=== PATIENT | female | born 1995 | race Caucasian/White ===

== ENCOUNTER → 2017-06-05 21:23 | Observation (INO) ==
[2017-06-05 14:50] LABS: Bilirubin,Urine Negative (Negative); Blood,Urine Negative (Negative); Clarity,Urine Cloudy (Clear); Color,Urine Dark Yellow (Yellow); Glucose,Urine (UA) Normal (Normal); Ketones,Urine Negative (Negative); Leukocyte Esterase,Urine Moderate (Negative); Nitrite,Urine Positive (Negative); Protein,Urine 30 mg/dL (Neg-Trace); Specific Gravity,Urine > 1.030 (1.010-1.025); Urobilinogen,Urine Normal (Normal)
[2017-06-05 14:52] LABS: Bacteria,Urine Moderate per hpf (None-Few); Hyaline Casts,Urine None Seen per lpf (None-Few); Squamous Epithelial Cell,Urine Many per lpf (None-Few); WBC,Urine TNTC per hpf (0-3)
[2017-06-05 14:56] LABS: Amphetamine Screen,Urine Negative ng/mL (Cutoff=1000); Barbiturate Screen,Urine Negative ng/mL (Cutoff=200); Benzodiazepines Screen,Urine Negative ng/mL (Cutoff=200); Cannabinoid Screen,Urine Negative ng/mL (Cutoff = 50); Cocaine Screen,Urine Negative ng/mL (Cutoff= 300); Opiate Screen,Urine Negative ng/mL (Cutoff=300); Phencyclidine Screen,Urine Negative ng/mL (Cutoff=25)
[2017-06-05 15:41] LABS: Basophils % 0.2 %; Eosinophils % 0.5 %; Hematocrit 30.8 % (35.3-44.9); Hemoglobin 9.6 g/dL (11.5-15.4); Immature Granulocytes % 0.4 % (0-4); Lymphocytes # 1.2 K/mcL (0.6-4.6); Lymphocytes % 14.6 %; Mean Corpuscular HGB Conc 31.2 g/dL (31.6-35.5); Mean Corpuscular Volume 83.5 fL (83.0-100.0); Mean Platelet Volume 10.2 fL (9.4-12.4); Monocytes # 0.5 K/mcL (0.0-1.3); Monocytes % 5.9 %; Neutrophils # 6.6 K/mcL (1.6-8.9); Platelet Count 239 K/mcL (140-400); Red Blood Count 3.69 M/mcL (3.82-4.97); Red Cell Distribution Width 14.6 % (11.5-14.5); Segmented Neutrophils % 78.4 %
--- NOTE | 2017-06-05 19:52 | Discharge Summary ---
Date of Encounter: 06/05/17 Time of Encounter: 19:56 - Discharge Diagnosis (1) UTI (urinary tract infection) in in third trimester Priority: Primary Status: Acute Comments: at 28 4/7 weeks gestation presents with right flank pain. WBC 8.5 UA: Cloudy, positive nitrites, moderat leuk esterase, microscopic WBC TNTC, moderate bacteria. Retroperitoneal US: [id number]-[id number] right-sided hydronephrosis, similar to prior exam on 02/26/2017. No calculi visualized. 2. Both ureteral jets are visualized within the bladder, suggestive of lack of high-grade obstruction. Plan: -1Gm IV Rocephin -PO Keflex 500mg BID x 7 days -[place] Q6h x3 days PRN severe pain (2) Right flank pain Priority: Primary Status: Acute (3) 28 weeks gestation of Priority: Primary Status: Chronic - Discharge Medications Prescriptions: cephALEXin [Keflex] 500 mg PO BID #14 capsule HYDROcodone/Acet 5/325 mg [[place] 5-325 mg] 1 tab PO Q6H PRN #12 tab PRN Reason: Severe Pain Home Medications: Ferrous Sulfate 06/05/17 [History] HYDROcodone/Acet 5/325 mg [[place] 5-325 mg] 1 tab PO Q6H PRN #12 tab 06/05/17 [Rx ] Formula Tablet 06/05/17 [History] cephALEXin [Keflex] 500 mg PO BID #14 capsule 06/05/17 [Rx] Allergies/Adverse Reactions: 3 Allergy/AdvReac Type Severity Reaction Status Date / Time No Known Allergies Allergy Verified 04/24/15 07:24 Data Procedures and tests throughout hospitalization: Laboratory Tests 06/05/17 06/05/17 06/05/17 14:35 14:35 15:17 WBC 8.5 RBC 3.69 L Hgb 9.6 L Hct 30.8 L MCV 83.5 MCH 26.0 L MCHC 31.2 L RDW 14.6 H Plt Count 239 MPV 10.2 Immature Gran % 0.4 Seg Neutrophils % 78.4 Lymphocytes % 14.6 Monocytes % 5.9 Eosinophils % 0.5 Basophils % 0.2 Neutrophils # 6.6 Lymphocytes # 1.2 Monocytes # 0.5 Eosinophils # 0.0 Basophils # 0.0 Urine Color Dark Yellow Urine Clarity Cloudy A Urine pH 6.0 Ur Specific [place] > 1.030 H Urine Protein 30 H Urine Glucose (UA) Normal Urine Ketones Negative Urine Blood Negative Urine Nitrite Positive A Urine Bilirubin Negative Urine Urobilinogen Normal Ur Leukocyte Esterase Moderate H Urine Microscopic RBC 5-15 H Urine Microscopic WBC TNTC H Ur Squamous Epith Cells Many H Urine Bacteria Moderate H Hyaline Casts None Seen Ur Culture Indicated? YES A Urine Opiates Screen Negative Ur Barbiturates Screen Negative Ur Phencyclidine Scrn Negative Ur Amphetamines Screen Negative U Benzodiazepines Scrn Negative Urine Cocaine Screen Negative U Marijuana (THC) Screen Negative Labs on day of discharge: Labs from last 24 hours 06/05/17 06/05/17 06/05/17 15:17 14:35 14:35 WBC 8.5 RBC 3.69 L Hgb 9.6 L Hct 30.8 L MCV 83.5 MCH 26.0 L MCHC 31.2 L RDW 14.6 H Plt Count 239 MPV 10.2 Immature Gran % 0.4 Seg Neutrophils % 78.4 Lymphocytes % 14.6 Monocytes % 5.9 Eosinophils % 0.5 Basophils % 0.2 Neutrophils # 6.6 Lymphocytes # 1.2 Monocytes # 0.5 Eosinophils # 0.0 Basophils # 0.0 Urine Color Dark Yellow Urine Clarity Cloudy A Urine pH 6.0 Ur Specific [place] > 1.030 H Urine Protein 30 H Urine Glucose (UA) Normal Urine Ketones Negative Urine Blood Negative Urine Nitrite Positive A Urine Bilirubin Negative Urine Urobilinogen Normal Ur Leukocyte Esterase Moderate H Urine Microscopic RBC 5-15 H Urine Microscopic WBC TNTC H Ur Squamous Epith Cells Many H Urine Bacteria Moderate H Hyaline Casts None Seen Ur Culture Indicated? YES A Urine Opiates Screen Negative Ur Barbiturates Screen Negative Ur Phencyclidine Scrn Negative Ur Amphetamines Screen Negative U Benzodiazepines Scrn Negative Urine Cocaine Screen Negative U Marijuana (THC) Screen Negative - Impressions ITS Impressions Retroperitoneum Ultrasound 06/05/17 14:27 IMPRESSION: 1. Uhmw-ke-[id number] right-sided hydronephrosis, similar to prior exam on 02/26/2017. No calculi visualized. 2. Both ureteral jets are visualized within the bladder, suggestive of lack of high-grade obstruction. 3. Tiny gallbladder polyps incidentally noted. No further follow-up is recommended. D/ / 06/05/2017 19:20:52 Devon Bourgeois MD / david Interpreting Provider: Devon Bourgeois MD - Imaging and Cardiology US - abdomen Status: image reviewed by me Additional comments: Date of admission: 06/05/17 13:24 Discharging clinician: Nadia Watkins Anticipated date of discharge: 06/05/17 - Patient Status Disposition: Home, Self-Care Condition: Good Functional capacity at discharge: independent ambulation Overall status at discharge: patient is progressing back to baseline - Discharge Instructions - Diet and Activity Activity: increase activity as tolerated Diet: advance to your usual diet 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 [id number]-[id number] right-sided hydronephrosis, similar to prior exam on 02/26/2017. No calculi visualized. 2. Both ureteral jets are visualized within the bladder, suggestive of lack of high-grade obstruction. 3. Tiny gallbladder polyps incidentally noted. No further follow-up is recommended. D/ / 06/05/2017 19:20:52 Devon Bourgeois MD / david Interpreting Provider: Devon Bourgeois MD Hospital course: at 28 4/7 weeks gestation presents with right flank pain. She states she noticed some dysuria and cloudy urine around wednesday last week. On tuesday she noticed right flank pain that is aching with intermittent sharp, stabbing pain that radiates to her groin and vagina. She denies f/c, cp, sob, RASHID, dizziness, n /v. She has a history of kidney stones requiring lithotripsy. She states she had a kidney stone around 12 weeks during this and they could not find the stone and just treated her pain. WBC 8.5; UA: Cloudy, positive nitrites , moderat leuk esterase, microscopic WBC TNTC, moderate bacteria. Retroperitoneal US: Onlf-wz-icbddtwl right-sided hydronephrosis, similar to prior exam on 02/26/2017. No calculi visualized. 2. Both ureteral jets are visualized within the bladder, suggestive of lack of high-grade obstruction. No evidence of kidney stone, uretal obstruction or pyeloephritis. Patient afebrile , VSS. Will treat UTI with 1Gm IV Rocephin now and discharge the patient with PO Keflex 500mg BID x 7 days. Patient discharged with [place] Q6h x3 days PRN for severe pain. Time Attestation: Total time spent providing and/or coordinating discharge services: Time Spent: Less than 30 minutes Exam - Constitutional General appearance IM: cooperative, mild distress, A&O X 3, pleasant, answers questions appropriately - Respiratory Respiratory exam: Present: CTAB. Absent: rales, respiratory distress, rhonchi, stridor, wheezes - Cardiovascular Cardiovascular exam IM: Present: RRR, +S1, +S2. Absent: diastolic murmur, systolic murmur - GI/Abdominal GI/Abdominal exam IM: normal bowel sounds, soft - Rectal Rectal exam: deferred Additional comments: CVA tenderness on the right - Uterine Tone: Firm Uterus Position: 3 Fingers Above Umbilicus - Extremities Exam Extremities exam IM: Present: normal capillary refill, normal inspection, pedal edema, radial pulses palpable and symmetrical. Absent: calf tenderness, tenderness - Neurological Exam Neurological exam: alert, oriented X3, no focal deficits, strengths equal and symetr throughout - VTE Reasons for not Prescribing Prophylaxis: Treatment not Indicated - Low risk for VTE - Attending Attestation I examined this patient and my medical decision-making was reviewed with the Resident Physician. I agree with the documented findings, disposition and treatment plan as described except to the extent set forth below.
[~2017-06-05 21:23] MED LIST: *HR* HYDROcodone/Acet 5/325 mg TABLET PO ONE; *HR* Morphine 2 MG/ML SYRINGE IVP PRN
== END | disposition home or self-care (01) ==
LOC: 1NENULAB
PROVIDERS: ADMIT Obstetrics & Gynecology; ATTEND Obstetrics & Gynecology

== ENCOUNTER → 2017-07-05 16:54 | Observation (INO) ==
[2017-07-05 15:56] LABS: Basophils % 0.2 %; Eosinophils # 0.1 K/mcL (0.0-0.6); Eosinophils % 0.5 %; Hematocrit 32.3 % (35.3-44.9); Hemoglobin 10.3 g/dL (11.5-15.4); Immature Granulocytes % 0.4 % (0-4); Lymphocytes # 1.5 K/mcL (0.6-4.6); Lymphocytes % 14.9 %; Mean Corpuscular HGB Conc 31.9 g/dL (31.6-35.5); Mean Corpuscular Hemoglobin 26.1 pg (28.0-33.3); Mean Platelet Volume 9.9 fL (9.4-12.4); Monocytes # 0.6 K/mcL (0.0-1.3); Monocytes % 5.3 %; Neutrophils # 8.1 K/mcL (1.6-8.9); Platelet Count 259 K/mcL (140-400); Red Blood Count 3.94 M/mcL (3.82-4.97); Red Cell Distribution Width 14.8 % (11.5-14.5); Segmented Neutrophils % 78.7 %
[2017-07-05 15:57] LABS: Bilirubin,Urine Negative (Negative); Blood,Urine Negative (Negative); Clarity,Urine Cloudy (Clear); Color,Urine Yellow (Yellow); Glucose,Urine (UA) Normal (Normal); Ketones,Urine Negative (Negative); Leukocyte Esterase,Urine Negative (Negative); Nitrite,Urine Negative (Negative); Protein,Urine Negative (Neg-Trace); Urobilinogen,Urine Normal (Normal)
[2017-07-05 15:59] LABS: Bacteria,Urine Moderate per hpf (None-Few); Hyaline Casts,Urine None Seen per lpf (None-Few); Squamous Epithelial Cell,Urine Many per lpf (None-Few)
[2017-07-05 16:09] LABS: Alanine Aminotransferase 7 Units/L (0-55); Aspartate Amino Transferase 8 Units/L (5-34); BUN/Creatinine Ratio 10 (6-26); Blood Urea Nitrogen 6 mg/dL (7-20); Lactate Dehydrogenase 150 Units/L (159-327); Uric Acid 4.1 mg/dL (2.6-6.0); eGFR For African Americans > 60 (> 60); eGFR For Non-African Americans > 60 (> 60)
[2017-07-05 16:13] LABS: Amphetamine Screen,Urine Negative ng/mL (Cutoff=1000); Barbiturate Screen,Urine Negative ng/mL (Cutoff=200); Benzodiazepines Screen,Urine Negative ng/mL (Cutoff=200); Cannabinoid Screen,Urine Negative ng/mL (Cutoff = 50); Cocaine Screen,Urine Negative ng/mL (Cutoff= 300); Opiate Screen,Urine Negative ng/mL (Cutoff=300); Phencyclidine Screen,Urine Negative ng/mL (Cutoff=25)
--- NOTE | 2017-07-05 18:04 | OB/GYN Progress Note ---
Date of Encounter: 07/05/17 Time of Encounter: 16:47 - Assessment and Plan (1) 32 weeks gestation of Status: Acute PIH labs normal Serial blood pressures normal Urine contaminated NST - reactive Discharge home with PIH and labor precautions Follow up in office as scheduled for routine care and as needed. Subjective - Subjective Principal diagnosis: Headache Interval history: Ms Sandoval presented to labor and delivery triage at 32 weeks and 6 days with c/o headache, nausea, and dizziness. She states she is concerned she may have PIH again as she had it with her last and had to have her baby 10 days early. She states positive movement. She denies swelling, cramping, contractions, vaginal bleeding/discharge, epigastric pain, and visual disturbances. Antepartum ROS: new complaints, movement normal, no contractions Objective - Vital Signs Vital Signs: Intake and Output 07/05/17 07/05/17 07/05/17 07:59 15:59 23:59 Other: Weight 125.4 kg Patient Weight 07/05/17 23:59 Weight 125.4 kg - Exam FHR: auscultation normal, category 1 - Labs Labs: Abnormal lab results Hgb 10.3 g/dL (11.5-15.4) L 07/05/17 15:46 Hct 32.3 % (35.3-44.9) L 07/05/17 15:46 MCV 82.0 fL (83.0-100.0) L 07/05/17 15:46 MCH 26.1 pg (28.0-33.3) L 07/05/17 15:46 RDW 14.8 % (11.5-14.5) H 07/05/17 15:46 BUN 6 mg/dL (7-20) L 07/05/17 15:46 Lactate Dehydrogenase 150 Units/L (159-327) L 07/05/17 15:46 Urine Clarity Cloudy (Clear) A 07/05/17 15:35 Urine Microscopic WBC 5-15 per hpf (0-3) H 07/05/17 15:35 Ur Squamous Epith Cells Many per lpf (None-Few) H 07/05/17 15:35 Urine Bacteria Moderate per hpf (None-Few) H 07/05/17 15:35
== END | disposition home or self-care (01) ==
LOC: 1NENULAB
PROVIDERS: ADMIT Obstetrics & Gynecology; ATTEND Obstetrics & Gynecology

== ENCOUNTER → 2017-08-01 09:05 | Observation (INO) ==
[2017-07-31 18:38] LABS: Bilirubin,Urine Negative (Negative); Blood,Urine Small (Negative); Clarity,Urine Turbid (Clear); Color,Urine Dark Yellow (Yellow); Glucose,Urine (UA) Normal (Normal); Ketones,Urine Negative (Negative); Leukocyte Esterase,Urine Negative (Negative); Nitrite,Urine Negative (Negative); Protein,Urine 100 mg/dL (Neg-Trace); Specific Gravity,Urine > 1.030 (1.010-1.025); Urobilinogen,Urine Normal (Normal)
[2017-07-31 18:45] LABS: Bacteria,Urine Many per hpf (None-Few); Squamous Epithelial Cell,Urine Many per lpf (None-Few); WBC,Urine TNTC per hpf (0-3)
[2017-07-31 19:09] LABS: Calcium Oxalate Crystals,Urine Present
[2017-07-31 19:10] LABS: Yeast,Urine Few per hpf (None Seen)
[2017-07-31 19:12] LABS: Hyaline Casts,Urine None Seen per lpf (None-Few)
[2017-07-31 19:35] LABS: Basophils % 0.2 %; Eosinophils # 0.1 K/mcL (0.0-0.6); Eosinophils % 0.4 %; Hematocrit 32.8 % (35.3-44.9); Hemoglobin 10.4 g/dL (11.5-15.4); Immature Granulocytes % 0.5 % (0-4); Lymphocytes # 1.8 K/mcL (0.6-4.6); Lymphocytes % 13.6 %; Mean Corpuscular HGB Conc 31.7 g/dL (31.6-35.5); Mean Corpuscular Hemoglobin 25.7 pg (28.0-33.3); Mean Platelet Volume 10.7 fL (9.4-12.4); Monocytes # 0.6 K/mcL (0.0-1.3); Monocytes % 4.2 %; Neutrophils # 10.7 K/mcL (1.6-8.9); Platelet Count 248 K/mcL (140-400); Red Blood Count 4.05 M/mcL (3.82-4.97); Red Cell Distribution Width 15.2 % (11.5-14.5); Segmented Neutrophils % 81.1 %
[2017-07-31 19:49] LABS: Alanine Aminotransferase 10 Units/L (0-55); Aspartate Amino Transferase 12 Units/L (5-34); BUN/Creatinine Ratio 14 (6-26); Blood Urea Nitrogen 9 mg/dL (7-20); Lactate Dehydrogenase 200 Units/L (159-327); Uric Acid 3.9 mg/dL (2.6-6.0); eGFR For African Americans > 60 (> 60); eGFR For Non-African Americans > 60 (> 60)
--- NOTE | 2017-07-31 20:20 | OB/GYN History & Physical ---
Date of Encounter: 07/31/17 Time of Encounter: 20:15 Assessment and Plan (1) 36 weeks gestation of Current visit: Yes Status: Chronic (2) induced hypertension Current visit: Yes Status: Acute Labs pending. IV labatolol ordered. Explained to patient we will control her blood pressure and await her labs. Monitor for labor and FHT's. She states with her first she was controlled with IV medication, but not PO medication at home and that was what lead to her delivery. She progressed to complete, but she was unable to push the baby out. Qualifiers: Trimester: third trimester Qualified Code(s): O13.3 - Gestational [ -induced] hypertension without significant proteinuria, third trimester (3) Previous section Current visit: Yes Status: Chronic Patient plans to have a repeat with tubal ligation. History of Present Illness Chief complaint: decreased movement and back pain HPI: Ms. Sandoval is a 22 year old female G2 P 1-0-0-1 at 36 4/7 weeks presented to labor and delivery for decreased movement and back pain. She states the back pain is coming and going. She believes it might be contractions. She denies any leaking fluid or vaginal bleeding. The baby is moving better than before. She denies headaches, visual changes, or RUQ pain. She does admit she had blood pressure issues with her last that occurred at this same gestational age. Past Med Surg Social Fam HX - Past Medical History Source: patient Medical history: kidney stones Psychiatric history: no psych history - Past Surgical History Surgical History: appendectomy, - Social History Smoking Status: Former smoker Smokeless Tobacco Status: No Alcohol use: none Drug use: none - Family History Mother Adopted: No Living Status: Still Living Hx Family Cardiac Disorders: Yes (HTN) Hx Family Respiratory Disorders: No Hx Family Cancer: No Hx Family GI Disorders: No Hx Family Endocrine Disorder: No Hx Family Neuromuscular Disorders: No Hx Family Neurologic Disorders: No Hx Family HEENT Disorders: No Hx Family Autoimmune Disorders: No Obstetrical History - Pregnancies : 2 Para: 1 Term: 1 Livin - History/Complications History/Complications: induced hypertension Medications and Allergies Ferrous Sulfate 324 mg PO DAILY 06/05/17 [History] 3 Allergy/AdvReac Type Severity Reaction Status Date / Time No Known Allergies Allergy Verified 04/24/15 07:24 Review of System OB All systems PM: reviewed and no additional remarkable complaints except as stated Exam - Constitutional Constitutional: well developed, well nourished, no acute distress, obese - Lungs Respiratory exam: CTAB - Cardiovascular Cardiovascular exam: RRR - Abdomen Abdomen: Present: bowel sounds normal, gravid, non tender. Absent: guarding noted, hepatomegaly - Extremities Deep Tendon Reflex Grade: 2+ Normal - Cervix Dilation: 1 Results Result Diagrams: 07/31/17 18:52 07/31/17 18:52 Abnormal lab results WBC 13.2 K/mcL (4.3-11.1) H 07/31/17 18:52 Hgb 10.4 g/dL (11.5-15.4) L 07/31/17 18:52 Hct 32.8 % (35.3-44.9) L 07/31/17 18:52 MCV 81.0 fL (83.0-100.0) L 07/31/17 18:52 MCH 25.7 pg (28.0-33.3) L 07/31/17 18:52 RDW 15.2 % (11.5-14.5) H 07/31/17 18:52 Neutrophils # 10.7 K/mcL (1.6-8.9) H 07/31/17 18:52 Urine Clarity Turbid (Clear) A 07/31/17 18:11 Ur Specific [place] > 1.030 (1.010-1.025) H 07/31/17 18:11 Urine Protein 100 mg/dL (Neg-Trace) H 07/31/17 18:11 Urine Blood Small (Negative) H 07/31/17 18:11 Urine Microscopic RBC 5-15 per hpf (0-3) H 07/31/17 18:11 Urine Microscopic WBC TNTC per hpf (0-3) H 07/31/17 18:11 Ur Squamous Epith Cells Many per lpf (None-Few) H 07/31/17 18:11 Urine Bacteria Many per hpf (None-Few) H 07/31/17 18:11 Urine Yeast Few per hpf (None Seen) H 07/31/17 18:11 All other labs normal. - VTE Reasons for not Prescribing Prophylaxis: Treatment not Indicated - Low risk for VTE
[2017-07-31 20:42] LABS: Amphetamine Screen,Urine Negative ng/mL (Cutoff=1000); Barbiturate Screen,Urine Negative ng/mL (Cutoff=200); Benzodiazepines Screen,Urine Negative ng/mL (Cutoff=200); Cannabinoid Screen,Urine Negative ng/mL (Cutoff = 50); Cocaine Screen,Urine Negative ng/mL (Cutoff= 300); Opiate Screen,Urine Negative ng/mL (Cutoff=300); Phencyclidine Screen,Urine Negative ng/mL (Cutoff=25)
[2017-07-31 20:44] LABS: Protein/Creatinine Ratio,Urine 0.18 mg/mg (0-0.20)
--- NOTE | 2017-08-01 08:55 | Discharge Summary ---
Date of Encounter: 08/01/17 Time of Encounter: 08:53 - Discharge Diagnosis (1) induced hypertension Priority: Primary Status: Acute Comments: B/P's reviewed with Dr. Szymanski. Decision to discharge home on aldomet 250mg po bid. Pt to follow up with Dr. Zee at scheduled appointment. Discharged home with labor and pre-e precautions. Pt and mother verbalize understanding. Qualifiers: Trimester: third trimester Qualified Code(s): O13.3 - Gestational [ -induced] hypertension without significant proteinuria, third trimester (2) 36 weeks gestation of Priority: Primary Status: Chronic - Discharge Medications Prescriptions: Methyldopa [Aldomet] 250 mg PO BID #60 tablet Home Medications: Ferrous Sulfate 324 mg PO DAILY 06/05/17 [History] Methyldopa [Aldomet] 250 mg PO BID #60 tablet 08/01/17 [Rx] Allergies/Adverse Reactions: 3 Allergy/AdvReac Type Severity Reaction Status Date / Time No Known Allergies Allergy Verified 04/24/15 07:24 Data Procedures and tests throughout hospitalization: Laboratory Tests 07/31/17 07/31/17 07/31/17 18:11 18:52 18:52 WBC 13.2 H RBC 4.05 Hgb 10.4 L Hct 32.8 L MCV 81.0 L MCH 25.7 L MCHC 31.7 RDW 15.2 H Plt Count 248 MPV 10.7 Immature Gran % 0.5 Seg Neutrophils % 81.1 Lymphocytes % 13.6 Monocytes % 4.2 Eosinophils % 0.4 Basophils % 0.2 Neutrophils # 10.7 H Lymphocytes # 1.8 Monocytes # 0.6 Eosinophils # 0.1 Basophils # 0.0 BUN 9 Creatinine 0.64 Est GFR ( Amer) > 60 Est GFR (Non-Af Amer) > 60 BUN/Creatinine Ratio 14 Uric Acid 3.9 AST 12 ALT 10 Lactate Dehydrogenase 200 Urine Color Dark Yellow Urine Clarity Turbid A Urine pH 6.0 Ur Specific [place] > 1.030 H Urine Protein 100 H Urine Glucose (UA) Normal Urine Ketones Negative Urine Blood Small H Urine Nitrite Negative Urine Bilirubin Negative Urine Urobilinogen Normal Ur Leukocyte Esterase Negative Urine Microscopic RBC 5-15 H Urine Microscopic WBC TNTC H Ur Squamous Epith Cells Many H Calcium Oxalate Crystal Present Urine Bacteria Many H Hyaline Casts None Seen Urine Yeast Few H Ur Culture Indicated? NO Urine Creatinine Protein/Creatinin Ratio Urine Total Protein Urine Opiates Screen Ur Barbiturates Screen Ur Phencyclidine Scrn Ur Amphetamines Screen U Benzodiazepines Scrn Urine Cocaine Screen U Marijuana (THC) Screen 07/31/17 07/31/17 20:12 20:12 WBC RBC Hgb Hct MCV MCH MCHC RDW Plt Count MPV Immature Gran % Seg Neutrophils % Lymphocytes % Monocytes % Eosinophils % Basophils % Neutrophils # Lymphocytes # Monocytes # Eosinophils # Basophils # BUN Creatinine Est GFR ( Amer) Est GFR (Non-Af Amer) BUN/Creatinine Ratio Uric Acid AST ALT Lactate Dehydrogenase Urine Color Urine Clarity Urine pH Ur Specific [place] Urine Protein Urine Glucose (UA) Urine Ketones Urine Blood Urine Nitrite Urine Bilirubin Urine Urobilinogen Ur Leukocyte Esterase Urine Microscopic RBC Urine Microscopic WBC Ur Squamous Epith Cells Calcium Oxalate Crystal Urine Bacteria Hyaline Casts Urine Yeast Ur Culture Indicated? Urine Creatinine 198 Protein/Creatinin Ratio 0.18 Urine Total Protein 36 H Urine Opiates Screen Negative Ur Barbiturates Screen Negative Ur Phencyclidine Scrn Negative Ur Amphetamines Screen Negative U Benzodiazepines Scrn Negative Urine Cocaine Screen Negative U Marijuana (THC) Screen Negative Labs on day of discharge: Labs from last 24 hours 07/31/17 07/31/17 07/31/17 20:12 20:12 18:52 WBC RBC Hgb Hct MCV MCH MCHC RDW Plt Count MPV Immature Gran % Seg Neutrophils % Lymphocytes % Monocytes % Eosinophils % Basophils % Neutrophils # Lymphocytes # Monocytes # Eosinophils # Basophils # BUN 9 Creatinine 0.64 Est GFR ( Amer) > 60 Est GFR (Non-Af Amer) > 60 BUN/Creatinine Ratio 14 Uric Acid 3.9 AST 12 ALT 10 Lactate Dehydrogenase 200 Urine Color Urine Clarity Urine pH Ur Specific [place] Urine Protein Urine Glucose (UA) Urine Ketones Urine Blood Urine Nitrite Urine Bilirubin Urine Urobilinogen Ur Leukocyte Esterase Urine Microscopic RBC Urine Microscopic WBC Ur Squamous Epith Cells Calcium Oxalate Crystal Urine Bacteria Hyaline Casts Urine Yeast Ur Culture Indicated? Urine Creatinine 198 Protein/Creatinin Ratio 0.18 Urine Total Protein 36 H Urine Opiates Screen Negative Ur Barbiturates Screen Negative Ur Phencyclidine Scrn Negative Ur Amphetamines Screen Negative U Benzodiazepines Scrn Negative Urine Cocaine Screen Negative U Marijuana (THC) Screen Negative 07/31/17 07/31/17 18:52 18:11 WBC 13.2 H RBC 4.05 Hgb 10.4 L Hct 32.8 L MCV 81.0 L MCH 25.7 L MCHC 31.7 RDW 15.2 H Plt Count 248 MPV 10.7 Immature Gran % 0.5 Seg Neutrophils % 81.1 Lymphocytes % 13.6 Monocytes % 4.2 Eosinophils % 0.4 Basophils % 0.2 Neutrophils # 10.7 H Lymphocytes # 1.8 Monocytes # 0.6 Eosinophils # 0.1 Basophils # 0.0 BUN Creatinine Est GFR ( Amer) Est GFR (Non-Af Amer) BUN/Creatinine Ratio Uric Acid AST ALT Lactate Dehydrogenase Urine Color Dark Yellow Urine Clarity Turbid A Urine pH 6.0 Ur Specific [place] > 1.030 H Urine Protein 100 H Urine Glucose (UA) Normal Urine Ketones Negative Urine Blood Small H Urine Nitrite Negative Urine Bilirubin Negative Urine Urobilinogen Normal Ur Leukocyte Esterase Negative Urine Microscopic RBC 5-15 H Urine Microscopic WBC TNTC H Ur Squamous Epith Cells Many H Calcium Oxalate Crystal Present Urine Bacteria Many H Hyaline Casts None Seen Urine Yeast Few H Ur Culture Indicated? NO Urine Creatinine Protein/Creatinin Ratio Urine Total Protein Urine Opiates Screen Ur Barbiturates Screen Ur Phencyclidine Scrn Ur Amphetamines Screen U Benzodiazepines Scrn Urine Cocaine Screen U Marijuana (THC) Screen Date of admission: 07/31/17 18:09 Discharging clinician: Hayley Urias Anticipated date of discharge: 08/01/17 - Patient Status Disposition: Home, Self-Care Condition: Good Functional capacity at discharge: independent ambulation Overall status at discharge: patient is back to baseline - Discharge Instructions Follow Up With: Ernie Zee MD [Partnered Physician] - Additional Instructions: LABOR AND DELIVERY DISCHARGE INSTRUCTIONS Signs and Symptoms to be Reported to your Doctor Immediately: * Sudden gush, continuous or intermittent lead of fluid from vagina (note the time of gush and color of fluid) * Onset of bright red vaginal bleeding with or without pain (if you had a vaginal exam during this visit you may notice some dark red spotting. This is normal.) * Lower abdominal cramping or backache that is premenstrual-like feeling. * More than 6 contractions in one hour. * Burning during urination, having to urinate more frequently or pain in your mid-back. * A change in the baby's activity. This could be an increase or decrease in activity. * Severe headache which does not go away with tylenol. * Sudden swelling in the face, hands, arms and/or legs. * Upper abdominal pain - sometimes associated with heartburn or nausea and is not relieved by Maalox, Mylanta or Tums. * Dizziness or blurred vision or visual disturbances (seeing stars/lights). * Kick Counts One hour after a meal, lay down on one side in a quiet place. Count the number of nhung the baby moves during an hour. If less than 6 movements, notify your physician. Diet: *Force fluids - 8-10 tall glasses of fluid per day. May include popsicles and jello. 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
[~2017-08-01 09:05] MED LIST changes: -*HR* HYDROcodone/Acet 5/325 mg TABLET PO ONE; +*HR* Labetalol 20 MG/4 ML SYRINGE IVP ONE; -*HR* Morphine 2 MG/ML SYRINGE IVP PRN; +Acetaminophen 325 MG TABLET PO ONE
== END | disposition home or self-care (01) ==
LOC: 1NENULAB
PROVIDERS: ADMIT Obstetrics & Gynecology; ATTEND Obstetrics & Gynecology

== ENCOUNTER 2017-08-17 06:11 | Inpatient (IN) ==
[2017-08-17] MEDS ORDERED: Famotidine 20 MG/2 ML VIAL IVP PRN ×2 (06:22→07:01)
[2017-08-17] MEDS ORDERED: Naloxone 0.4 MG/ML INJ IVP PRN ×2 (06:22→07:01)
[2017-08-17] MEDS ORDERED: Metoclopramide 10 MG/2 ML VIAL IVP PRN ×3 (06:22→10:55)
[2017-08-17] MEDS ORDERED: Ringers Solution, Lactated 1,000 ML IVC ONE ×2 (06:24→07:02)
[2017-08-17] MEDS ORDERED: Ringers Solution, Lactated 1,000 ML IVC SCH ×3 (06:30→11:00)
[2017-08-17] MEDS ORDERED: Lidocaine -MPF 1% 2 ML VIAL ONE (07:11)
[2017-08-17 07:16] LABS: Basophils % 0.2 %; Eosinophils # 0.1 K/mcL (0.0-0.6); Eosinophils % 0.7 %; Hematocrit 32.5 % (35.3-44.9); Hemoglobin 10.2 g/dL (11.5-15.4); Immature Granulocytes % 0.5 % (0-4); Lymphocytes # 1.7 K/mcL (0.6-4.6); Lymphocytes % 17.6 %; Mean Corpuscular HGB Conc 31.4 g/dL (31.6-35.5); Mean Corpuscular Hemoglobin 25.7 pg (28.0-33.3); Mean Corpuscular Volume 81.9 fL (83.0-100.0); Mean Platelet Volume 10.5 fL (9.4-12.4); Monocytes # 0.5 K/mcL (0.0-1.3); Neutrophils # 7.5 K/mcL (1.6-8.9); Platelet Count 210 K/mcL (140-400); Red Blood Count 3.97 M/mcL (3.82-4.97); Red Cell Distribution Width 15.5 % (11.5-14.5)
[2017-08-17] MEDS ORDERED: *HR* Promethazine 25 MG/ML VIAL IVP PRN (07:25)
[2017-08-17] MEDS ORDERED: *HR* Labetalol 20 MG/4 ML SYRINGE IVP PRN (07:25)
[2017-08-17] MEDS ORDERED: *HR* HYDROmorphone (PF) 1 MG/ML SYRINGE IVP PRN ×2 (07:25→12:50)
--- NOTE | 2017-08-17 07:29 | Anesthesia Evaluation PreOp ---
Date of Encounter: 08/17/17 Time of Encounter: 07:27 - Past History Planned Operation: repeat G2 Cardiac History: HTN Pulmonary History: Denies Any Significant HX PHYSICS AND ASTRONOMY PROFESSOR History: Denies Any Significant HX Other Medical History: Denies Any Significant HX Anesthesia History: No Prior Anesthetic Complications, Past Anesthesia Alcohol Use: none Drug use: none Medications and Allergies Ferrous Sulfate 324 mg PO DAILY 06/05/17 [History] Methyldopa [Aldomet] 250 mg PO BID #60 tablet 08/01/17 [Rx] 3 Allergy/AdvReac Type Severity Reaction Status Date / Time No Known Allergies Allergy Verified 04/24/15 07:24 Anesthesia Results - Labs 08/17/17 07:05 Anesthesia Exam - HEENT Pupil (Motor): Pupils equal Mallampati: III Teeth: Normal Oral Opening: Greater than 3 - PHYSICS AND ASTRONOMY PROFESSOR LOC: Oriented PHYSICS AND ASTRONOMY PROFESSOR Motor: Normal RUE, Normal LUE, Normal RLE, Normal LLE, Normal Face PHYSICS AND ASTRONOMY PROFESSOR Sensory: Normal: RUE, LUE, RLE, LLE, Face - Cardiac Rhythm: Regular Murmur: None - Pulmonary Breath Sounds: bilateral Clear Respiratory Effort: Symmetrical Anesthesia Assess/Plan ASA Score: 3 Modified Soumya Scale for Level of Consciousness: Cooperative, oriented, and tranquil Anesthetic Plan: General, Regional Monitoring Plan: Standard Monitors Recovery Plan: PACU
[2017-08-17] MEDS ORDERED: Ringers Solution, Lactated 1,000 ML ONE ×2 (07:31)
[2017-08-17] MEDS ORDERED: ceFAZolin 3,000 MG in Water for inj. (sterile) 30 ML IVP ONE (07:33)
[2017-08-17] MEDS ORDERED: *HR* Oxytocin 10 UNIT/ML VIAL IM ONE (07:37)
[2017-08-17] MEDS ORDERED: *HR* Morphine Sulfate/PF 5 MG/10 ML AMPUL ONE (07:37)
[2017-08-17] MEDS ORDERED: *HR* Phenylephrine 10 MG/ML VIAL ONE (07:37)
[2017-08-17] MEDS ORDERED: EPHEDrine 50 MG/ML VIAL ONE (07:37)
[2017-08-17] MEDS ORDERED: *HR* FentaNYL (PF) 100 MCG/2 ML VIAL ONE ×3 (07:38→09:44)
--- NOTE | 2017-08-17 07:56 | OB/GYN History & Physical ---
Date of Encounter: 08/17/17 Time of Encounter: 07:52 Assessment and Plan (1) History of section Current visit: Yes Status: Acute counseled the patient again and she is sure she wants to tie her tubes, ok to proceed. History of Present Illness HPI: Ms. Sandoval is a 22 year old female @ 39 weeks +0 who presents to L&D for repeat C/section. She has a history of a PC/S and desires RC/S with BTL. She does not report LOF, VB or ctxs, feels good FM. course uncomplicated. Past Med Surg Social Fam HX - Past Medical History Medical history: kidney stones Psychiatric history: no psych history - Past Surgical History Surgical History: appendectomy, - Social History Smoking Status: Former smoker Smokeless Tobacco Status: No Alcohol use: none Drug use: none - Family History Mother Adopted: No Family Member Ethnicity: Non- Living Status: Still Living Hx Family Cardiac Disorders: Yes (HTN) Hx Family Respiratory Disorders: No Hx Family Cancer: No Hx Family GI Disorders: No Hx Family Endocrine Disorder: No Hx Family Neuromuscular Disorders: No Hx Family Neurologic Disorders: No Hx Family HEENT Disorders: No Hx Family Autoimmune Disorders: No Obstetrical History - Pregnancies : 2 Para: 1 Livin Medications and Allergies Ferrous Sulfate 324 mg PO DAILY 06/05/17 [History] Methyldopa [Aldomet] 250 mg PO BID #60 tablet 08/01/17 [Rx] 3 Allergy/AdvReac Type Severity Reaction Status Date / Time No Known Allergies Allergy Verified 04/24/15 07:24 Review of System OB All systems PM: reviewed and no additional remarkable complaints except as stated Exam - Vital Signs Vital signs: Initial Vital Signs Temp Pulse Resp BP 98.5 F 76 17 145/82 08/17/17 06:46 08/17/17 06:46 08/17/17 06:46 08/17/17 06:46 - Constitutional Constitutional: no acute distress - HEENT HEENT: PERRL - Neck Neck exam: full ROM - Lungs Respiratory exam: CTAB - Cardiovascular Cardiovascular exam: RRR - Abdomen Abdomen: Present: gravid - Extremities Extremities exam: normal inspection Results Result Diagrams: 08/17/17 07:05 Abnormal lab results Hgb 10.2 g/dL (11.5-15.4) L 08/17/17 07:05 Hct 32.5 % (35.3-44.9) L 08/17/17 07:05 MCV 81.9 fL (83.0-100.0) L 08/17/17 07:05 MCH 25.7 pg (28.0-33.3) L 08/17/17 07:05 MCHC 31.4 g/dL (31.6-35.5) L 08/17/17 07:05 RDW 15.5 % (11.5-14.5) H 08/17/17 07:05 All other labs normal.
[2017-08-17] MEDS ORDERED: Ondansetron 4 MG/2 ML VIAL ONE (09:01)
[2017-08-17] MEDS ORDERED: *HR* FentaNYL (PF) 250 MCG/5 ML VIAL ONE ×2 (09:28→10:05)
[2017-08-17] MEDS ORDERED: Ketamine *HR* 500 MG/10 ML MDV ONE (09:50)
[2017-08-17] MEDS ORDERED: *HR* Midazolam HCl 2 MG/2 ML VIAL ONE (09:51)
[2017-08-17] MEDS ORDERED: *HR* Propofol 200 MG/20 ML VIAL IVP ONE (09:52)
[2017-08-17] MEDS ORDERED: Oxytocin 20 units/ LR 1000 mL 20 UNIT/1,000 ML BAG IVC ONE (09:54)
[2017-08-17] MEDS ORDERED: Lidocaine/EPI 1:200k 2% PF 20 ML VIAL ONE (10:28)
[2017-08-17] MEDS ORDERED: Sennosides 8.6 MG TABLET PO PRN (10:55)
[2017-08-17] MEDS ORDERED: Simethicone 80 MG TAB.CHEW PO PRN (10:55)
[2017-08-17] MEDS ORDERED: Ondansetron 4 MG/2 ML VIAL IVP PRN (10:55)
[2017-08-17] MEDS ORDERED: Rho Immune Globulin 1,500 UNIT SYRINGE IM ONE (10:55)
--- NOTE | 2017-08-17 10:55 | OB/GYN Procedure Note ---
Section - Preop diagnosis: desires repeat , desires sterilization Post-op diagnosis: same Procedure: repeat low transverse, bilateral tubal ligation, other (removal of skin tag on left side of groin) Surgeon: Ernie Zee Estimated blood loss (cc): 400 Distribution Dispatcher: Jessee Chávez Anesthesia Type: Spinal section complications: uterine atony Disposition: L&D Recovery Room Specimens: Placenta, Cord blood, Right tube segment, Left tube segment (skin tag ) - (s) A Delivery Date: 08/17/17 Delivery Time: 08:58 Presentation: vertex Gender: Male Gram Weight: 3.05 kg at 1 minute: 9 at 5 minutes: 9 Shoulder Dystocia: not encountered Specimens collected: cord blood Placenta: complete extraction Cord: true knot - Narrative Narrative: The patient was brought to the operating room and was given satisfactory spinal anesthesia. The abdomen was prepped and draped in a sterile fashion. A Pfannenstiel incision was made and carried sharply down to the level of the fascia. The fascia was incised transversely. The fascia was dissected away from the underlying rectus muscles. We encountered very dense scar tissue that took us a lot of time to take down. With sharp and blunt dissection, the rectus muscles were divided in the midline. The perineum was entered bluntly. The incision was carried vertically with scissors. A bladder retractor was placed to protect the bladder. The lower uterine segment was entered sharply with a scalpel. The incision was manually extended. Clear amniotic fluid was encountered. The 's head was pulled up and delivered easily as were the shoulders and body. The mouth and oropharynx were suctioned. The cord was clamped and cut. The infant was passed off to the waiting gum worker in satisfactory condition. Placenta was extracted completely and found to be intact. Uterus was explored and found to be empty. Uterus was delivered through the abdominal incision and massaged vigorously. Intravenous Pitocin was administered. Clamps were placed about the margins of the uterine incision, which was closed primarily with a running locking stitch of 0 Vicryl with adequate hemostasis. Secondary running locking stitch was placed for extra strength to the wound. At this point, attention was diverted to the patient's tubes, a Addison clamp grasped the isthmic portion of each tube and approximately 1-cm knuckle on either side was tied off with two lengths of 0 plain catgut. Intervening knuckle was excised and passed off the field. The proximal end of the tubal mucosa was cauterized. Cul-de-sac and gutters were suctioned vigorously. The uterus was returned to its proper anatomic position in the abdomen. We noticed that the uterus was atonic so I injected Hemabate into the myometrium. Shortly after injection, the uterus was noted to be firm. The fascia was closed with a simple running stitch of 0 vicryl. The skin was closed with running subcuticular stitch of 4-0 vicryl. The uterus was expressed of its contents. There were no complications. There was 400 cc of blood loss. All sponge, needle, and instrument counts were reported to be correct. Attention was turned to the skin tag on the left annabella. using a scalpel the skin tag was removed and sent to the pathologist. The skin was closed with 4 -0 vicryl. Patient tolerated the procedure well and was taken to the recovery room in stable condition.
[2017-08-17] MEDS ORDERED: Oxytocin 20 units/ LR 1000 mL 20 UNIT/1,000 ML BAG IVC SCH (11:00)
--- NOTE | 2017-08-17 12:49 | Anesthesia Evaluation Post Op ---
Date of Encounter: 08/17/17 Time of Encounter: 11:44 - Vital Signs Vital Signs: vss - Lungs Lungs: Clear Ascult./Percussion - Airway Airway: Non-obstructed - Mental Status Mental Status: Alert & Oriented, Answers Appropriately - Pain Pain Scale used: Elvia (Faces) - Nausea Vomiting Nausea Vomiting: Not Present - Hydration Hydration: Ice chips - Discharge PostOp Status: Transfer Patient to floor
[2017-08-17] MEDS ORDERED: *HR* Morphine 2 MG/ML SYRINGE IVP PRN (12:50)
[2017-08-17] MEDS: Ibuprofen 600 MG TABLET PO PRN (20:20)
[2017-08-17] MEDS: *HR* OxyCODONE/APAP 5/325 TABLET PO PRN (20:20)
[2017-08-18 04:13] LABS: Basophils % 0.2 %; Eosinophils % 0.3 %; Hematocrit 25.2 % (35.3-44.9); Immature Granulocytes % 1.4 % (0-4); Lymphocytes # 1.4 K/mcL (0.6-4.6); Lymphocytes % 14.9 %; Mean Corpuscular HGB Conc 32.1 g/dL (31.6-35.5); Mean Corpuscular Hemoglobin 26.1 pg (28.0-33.3); Mean Corpuscular Volume 81.3 fL (83.0-100.0); Mean Platelet Volume 10.6 fL (9.4-12.4); Monocytes # 0.6 K/mcL (0.0-1.3); Monocytes % 5.9 %; Neutrophils # 7.4 K/mcL (1.6-8.9); Nucleated Red Blood Cells 0.3 /100 WBC (0); Platelet Count 178 K/mcL (140-400); Segmented Neutrophils % 77.3 %
[2017-08-18 04:22] LABS: Hemoglobin 8.1 g/dL (11.5-15.4)
[2017-08-18] MEDS: Ibuprofen 600 MG TABLET PO PRN ×3 (06:53→19:50)
[2017-08-18] MEDS: *HR* OxyCODONE/APAP 5/325 TABLET PO PRN ×3 (06:53→19:50)
--- NOTE | 2017-08-18 09:04 | OB/GYN Progress Note ---
Date of Encounter: 08/18/17 Time of Encounter: 09:02 - Assessment and Plan (1) Status post repeat low transverse section Current Visit: Yes Status: Acute Continue routine care possible discharge home tomorrow (2) Status post tubal ligation Current Visit: Yes Status: Acute Continue routine care (3) Breast feeding status of mother Current Visit: Yes Status: Acute support prn (4) anemia Current Visit: Yes Status: Acute continue ferrous sulfate daily Subjective - Subjective Principal diagnosis: postop/ day1 Interval history: Patient meeting day 1 milestones. Patient denies any pain at this time. Patient in chair breast feeding infant. Patient reports: appetite normal, voiding normally, pain well controlled, ambulating normally [place]: doing well, nursing well Objective - Vital Signs Latest vital signs: Vital Signs Temp Pulse Pulse Resp BP Pulse Ox 08/18/17 03:13 98.0 F 91 16 139/84 97 08/18/17 00:37 98.3 F 93 16 135/85 97 08/17/17 20:10 98.4 F 99 16 120/81 97 08/17/17 15:59 98.5 F 102 16 143/88 96 08/17/17 15:10 98.3 F 99 16 125/66 08/17/17 15:00 98.0 F 108 16 123/73 08/17/17 14:00 123/73 97 08/17/17 13:30 98.7 F 98 98 18 134/78 97 08/17/17 13:00 98.2 F 101 98 16 128/83 97 Intake and Output 08/17/17 08/18/17 08/18/17 23:59 07:59 15:59 Intake Total 120 / 120 1850 / 1850 Output Total 200 / 200 2029 / 2029 Balance -80 / -80 -180 / -180 Intake: IV Fluids 950 / 950 Pitocin 20 unit In 1,000 ml @ 950 / 950 125 mls/hr IVC .Q8H JACOB Rx#: [id number] Oral 120 / 120 900 / 900 Output: Urine 1850 / 1850 Catheter 200 / 200 180 / 180 Other: Weight 131.088 kg Patient Weight 08/18/17 23:59 Weight 131.088 kg - Exam Lungs: bilateral: normal Extremities: Present: normal Abdomen: Present: normal appearance, soft, gravid Incision: Present: normal, dry, intact, dressed (NOAH) Uterus: Present: normal, firm - Labs Labs: Laboratory Results - last 24 hr 08/17/17 08/18/17 10:20 03:58 WBC 9.6 RBC 3.10 L Hgb 8.1 L D Hct 25.2 L MCV 81.3 L MCH 26.1 L MCHC 32.1 RDW 16.0 H Plt Count 178 MPV 10.6 Immature Gran % 1.4 Seg Neutrophils % 77.3 Lymphocytes % 14.9 Monocytes % 5.9 Eosinophils % 0.3 Basophils % 0.2 Neutrophils # 7.4 Lymphocytes # 1.4 Monocytes # 0.6 Eosinophils # 0.0 Basophils # 0.0 Nucleated RBCs/100 WBC 0.3 H Screen NEGATIVE Baby's Blood Type O RH POSITIVE Mother's Blood Type A RH NEGATIVE Rhogam Indicated YES Rhogam Req for Mother 1
[2017-08-18] MEDS: Prenatal Vit/FA 1 EACH TABLET PO SCH (09:35)
[2017-08-19] MEDS: *HR* OxyCODONE/APAP 5/325 TABLET PO PRN ×2 (06:36→12:27)
[2017-08-19] MEDS: Ibuprofen 600 MG TABLET PO PRN ×2 (06:36→12:27)
[2017-08-19 10:00] LABS: Basophils % 0.3 %; Eosinophils # 0.1 K/mcL (0.0-0.6); Eosinophils % 0.7 %; Hematocrit 26.9 % (35.3-44.9); Hemoglobin 8.5 g/dL (11.5-15.4); Immature Granulocytes % 0.5 % (0-4); Lymphocytes # 1.1 K/mcL (0.6-4.6); Lymphocytes % 11.3 %; Mean Corpuscular HGB Conc 31.6 g/dL (31.6-35.5); Mean Corpuscular Volume 82.3 fL (83.0-100.0); Mean Platelet Volume 10.4 fL (9.4-12.4); Monocytes # 0.3 K/mcL (0.0-1.3); Monocytes % 3.3 %; Neutrophils # 8.4 K/mcL (1.6-8.9); Platelet Count 234 K/mcL (140-400); Red Blood Count 3.27 M/mcL (3.82-4.97); Red Cell Distribution Width 16.2 % (11.5-14.5); Segmented Neutrophils % 83.9 %
[2017-08-19 10:20] LABS: Alanine Aminotransferase 7 Units/L (7-52); Aspartate Amino Transferase 13 Units/L (13-39); BUN/Creatinine Ratio 15 (6-26); Blood Urea Nitrogen 9 mg/dL (6-20); Uric Acid 4.8 mg/dL (2.3-7.6); eGFR For African Americans > 60 (> 60); eGFR For Non-African Americans > 60 (> 60)
[2017-08-19 11:06] LABS: Lactate Dehydrogenase 173 Units/L (140-271)
[2017-08-19 11:16] VITALS: BP 143/95
[2017-08-19] MEDS: Prenatal Vit/FA 1 EACH TABLET PO SCH (11:31)
--- NOTE | 2017-08-19 12:16 | Discharge Summary ---
Date of Encounter: 08/19/17 Time of Encounter: 12:14 - Discharge Diagnosis (1) Breast feeding status of mother Priority: Secondary Status: Acute (2) anemia Priority: Secondary Status: Acute Comments: no s/sx anemia, home on iron (3) Status post repeat low transverse section Priority: Primary Status: Acute Comments: Pt meeting post-op milestones. (4) Status post tubal ligation Priority: Secondary Status: Acute (5) induced hypertension Priority: Secondary Status: Acute Comments: Pt was on Aldomet 250mg BID in . BP 140's/90/s. Will restart Aldomet prior to discharge. Pt denies s/sx preeclampsia. PIH labs WNL. Qualifiers: Trimester: third trimester Qualified Code(s): O13.3 - Gestational [ -induced] hypertension without significant proteinuria, third trimester - Discharge Medications Prescriptions: OxyCODONE/APAP 5/325 [Percocet 5/325 MG] 1 each PO Q4HR PRN #30 tablet PRN Reason: Moderate pain 4-6 Ibuprofen [Motrin] 600 mg PO Q6HR PRN #60 tablet PRN Reason: Cramping Docusate [Colace] 100 mg PO BID #60 capsule Ferrous Sulfate 325 mg PO DAILY #30 tablet Methyldopa [Aldomet] 250 mg PO BID #60 tablet Home Medications: Ferrous Sulfate 324 mg PO DAILY 06/05/17 [History] Breast Pump [BREAST PUMP] 1 each .ROUTE AD #1 each 08/19/17 [Rx] Docusate [Colace] 100 mg PO BID #60 capsule 08/19/17 [Rx] Ferrous Sulfate 325 mg PO DAILY #30 tablet 08/19/17 [Rx] Ibuprofen [Motrin] 600 mg PO Q6HR PRN #60 tablet 08/19/17 [Rx] Methyldopa [Aldomet] 250 mg PO BID #60 tablet 08/19/17 [Rx] OxyCODONE/APAP 5/325 [Percocet 5/325 MG] 1 each PO Q4HR PRN #30 tablet 08/19/17 [Rx] Vit/FA 1 each PO DAILY tablet 08/19/17 [Rx] Simethicone [Gas-X] 80 mg PO TID PRN tab.chew 08/19/17 [Rx] Allergies/Adverse Reactions: 3 Allergy/AdvReac Type Severity Reaction Status Date / Time No Known Allergies Allergy Verified 04/24/15 07:24 Data Procedures and tests throughout hospitalization: Laboratory Tests 08/17/17 08/17/17 08/18/17 07:05 10:20 03:58 WBC 9.9 9.6 RBC 3.97 3.10 L Hgb 10.2 L 8.1 L D Hct 32.5 L 25.2 L MCV 81.9 L 81.3 L MCH 25.7 L 26.1 L MCHC 31.4 L 32.1 RDW 15.5 H 16.0 H Plt Count 210 178 MPV 10.5 10.6 Immature Gran % 0.5 1.4 Seg Neutrophils % 76.0 77.3 Lymphocytes % 17.6 14.9 Monocytes % 5.0 5.9 Eosinophils % 0.7 0.3 Basophils % 0.2 0.2 Neutrophils # 7.5 7.4 Lymphocytes # 1.7 1.4 Monocytes # 0.5 0.6 Eosinophils # 0.1 0.0 Basophils # 0.0 0.0 Nucleated RBCs/100 WBC 0.3 H BUN Creatinine Est GFR ( Amer) Est GFR (Non-Af Amer) BUN/Creatinine Ratio Uric Acid AST ALT Lactate Dehydrogenase Screen NEGATIVE Baby's Blood Type O RH POSITIVE Mother's Blood Type A RH NEGATIVE Rhogam Indicated YES Rhogam Req for Mother 1 08/19/17 08/19/17 09:27 09:27 WBC 10.0 RBC 3.27 L Hgb 8.5 L Hct 26.9 L MCV 82.3 L MCH 26.0 L MCHC 31.6 RDW 16.2 H Plt Count 234 MPV 10.4 Immature Gran % 0.5 Seg Neutrophils % 83.9 Lymphocytes % 11.3 Monocytes % 3.3 Eosinophils % 0.7 Basophils % 0.3 Neutrophils # 8.4 Lymphocytes # 1.1 Monocytes # 0.3 Eosinophils # 0.1 Basophils # 0.0 Nucleated RBCs/100 WBC BUN 9 Creatinine 0.61 Est GFR ( Amer) > 60 Est GFR (Non-Af Amer) > 60 BUN/Creatinine Ratio 15 Uric Acid 4.8 AST 13 ALT 7 Lactate Dehydrogenase 173 Screen Baby's Blood Type Mother's Blood Type Rhogam Indicated Rhogam Req for Mother Labs on day of discharge: Labs from last 24 hours 08/19/17 08/19/17 09:27 09:27 WBC 10.0 RBC 3.27 L Hgb 8.5 L Hct 26.9 L MCV 82.3 L MCH 26.0 L MCHC 31.6 RDW 16.2 H Plt Count 234 MPV 10.4 Immature Gran % 0.5 Seg Neutrophils % 83.9 Lymphocytes % 11.3 Monocytes % 3.3 Eosinophils % 0.7 Basophils % 0.3 Neutrophils # 8.4 Lymphocytes # 1.1 Monocytes # 0.3 Eosinophils # 0.1 Basophils # 0.0 BUN 9 Creatinine 0.61 Est GFR ( Amer) > 60 Est GFR (Non-Af Amer) > 60 BUN/Creatinine Ratio 15 Uric Acid 4.8 AST 13 ALT 7 Lactate Dehydrogenase 173 Date of admission: 08/17/17 06:11 Primary care physician: Charly Adair Discharging clinician: Rhiannon Short Anticipated date of discharge: 08/19/17 - Patient Status Disposition: Home, Self-Care Condition: Good Functional capacity at discharge: independent ambulation Overall status at discharge: patient is progressing back to baseline - Discharge Instructions Follow Up With: Charly Adair MD [Primary Care Provider] - Ernie Zee MD [Partnered Physician] - - Diet and Activity Activity: increase activity as tolerated Diet: regular diet Hospital Course Reason for admission: section Delivery: section Episiotomy: none Laceration: none Other procedures: tubal ligation complications: none Discharge diagnosis: IUP at term delivered baby: male Hospital course: - Preop diagnosis: desires repeat , desires sterilization Post-op diagnosis: same Procedure: repeat low transverse, bilateral tubal ligation, other (removal of skin tag on left side of groin) Surgeon: Ernie Zee Estimated blood loss (cc): 400 Varsity Baseball Coach: Jessee Chávez Anesthesia Type: Spinal section complications: uterine atony Disposition: L&D Recovery Room Specimens: Placenta, Cord blood, Right tube segment, Left tube segment (skin tag ) - (s) Infant A Delivery Date: 08/17/17 Delivery Time: 08:58 Presentation: vertex Gender: Male Gram Weight: 3.05 kg at 1 minute: 9 at 5 minutes: 9 Shoulder Dystocia: not encountered Specimens collected: cord blood Placenta: complete extraction Cord: true knot Time Attestation: Total time spent providing and/or coordinating discharge services: Time Spent: Less than 30 minutes - VTE Documentation of Mechanical Device: Graduated compression elastic hosiery Exam - Constitutional Vitals: Temp Pulse Resp BP Pulse Ox 98.2 F 106 16 143/95 98 08/19/17 08:10 08/19/17 08:10 08/19/17 09:19 08/19/17 11:10 08/19/17 08:10 General appearance IM: A&O X 3, pleasant, no acute distress - Respiratory Respiratory exam: Present: CTAB - Cardiovascular Cardiovascular exam IM: Present: RRR, +S1, +S2 - GI/Abdominal GI/Abdominal exam IM: soft, no peritoneal signs Incision: dressed (NOHA dry and intact) - Rectal Rectal exam: deferred - Uterine Tone: Firm Uterus Position: 2 Fingers Below Umbilicus - Extremities Exam Extremities exam IM: Present: normal inspection, pedal edema (mild) - Neurological Exam Neurological exam: normal gait, oriented X3 - Psychiatric Additional comments: reports good mood
== END 2017-08-19 14:55 | disposition home or self-care (01) | DRG 540 ==
LOC: 1NENULAB 06:11 → 1NENUOBS 13:30
PROVIDERS: ADMIT Student in an Organized Health Care Education/Training Program; ATTEND Student in an Organized Health Care Education/Training Program

== ENCOUNTER 2021-02-03 13:49 | Inpatient (IN) ==
[2021-02-03 14:39] LABS: Bacteria,Urine Few per hpf (None-Few); Bilirubin,Urine Negative (Negative); Blood,Urine Large (Negative); Calcium Oxalate Crystals,Urine Present per hpf; Clarity,Urine Clear (Clear); Color,Urine Light-Yellow (Yellow); Glucose,Urine (UA) Normal (Normal); Ketones,Urine Negative (Negative); Leukocyte Esterase,Urine Negative (Negative); Mucus,Urine Few per lpf (None-Few); Nitrite,Urine Negative (Negative); Protein,Urine Trace mg/dL (Neg-Trace); RBC,Urine 50-100 per hpf (0-3); Specific Gravity,Urine > 1.030 (1.010-1.025); Squamous Epithelial Cell,Urine Few per hpf (None-Few); Urobilinogen,Urine Normal (Normal); WBC,Urine 0-3 per hpf (0-3)
[2021-02-03 14:39] LABS: Basophils % 0.5 %; Eosinophils % 0.5 %; Hematocrit 36.7 % (35.3-44.9); Hemoglobin 11.6 g/dL (11.5-15.4); Immature Granulocytes % 0.2 % (0-4); Lymphocytes # 1.5 K/mcL (0.6-4.6); Lymphocytes % 18.7 %; Mean Corpuscular HGB Conc 31.6 g/dL (31.6-35.5); Mean Corpuscular Hemoglobin 26.9 pg (28.0-33.3); Mean Corpuscular Volume 85.2 fL (83.0-100.0); Mean Platelet Volume 9.8 fL (9.4-12.4); Monocytes # 0.3 K/mcL (0.0-1.3); Neutrophils # 6.4 K/mcL (1.6-8.9); Platelet Count 302 K/mcL (140-400); Red Blood Count 4.31 M/mcL (3.82-4.97); Red Cell Distribution Width 13.4 % (11.5-14.5); Segmented Neutrophils % 77.1 %; White Blood Count 8.3 K/mcL (4.3-11.1)
[2021-02-03 14:49] LABS: Amphetamine Screen,Urine Negative ng/mL (Cutoff=1000); Barbiturate Screen,Urine Negative ng/mL (Cutoff=200); Benzodiazepines Screen,Urine Negative ng/mL (Cutoff=200); Cannabinoid Screen,Urine Positive ng/mL (Cutoff = 50); Cocaine Screen,Urine Negative ng/mL (Cutoff= 300); Opiate Screen,Urine Negative ng/mL (Cutoff=300); Phencyclidine Screen,Urine Negative ng/mL (Cutoff=25)
[2021-02-03 14:58] LABS: Acetaminophen < 10 mcg/mL (10-20); BUN/Creatinine Ratio 19 (6-26); Blood Urea Nitrogen 16 mg/dL (6-20); Calcium 9.4 mg/dL (8.6-10.3); Carbon Dioxide 23 mEq/L (23-29); Chloride 106 mEq/L (98-107); Cholesterol 139 mg/dL (< 200); Ethanol < 10 mg/dL (Less than 10); Glucose 126 mg/dL (70-105); HDL Cholesterol 46 mg/dL (40-59); LDL Cholesterol,Calculated 71 mg/dL (< 100); Osmolality,Calculated 287 (280-300); Potassium 3.7 mEq/L (3.5-5.1); Salicylate < 2.5 mg/dL (15.0-30.0); Sodium 137 mEq/L (136-145); Triglycerides 111 mg/dL (< 150); eGFR For African Americans > 60 (> 60); eGFR For Non-African Americans > 60 (> 60)
[2021-02-03 15:04] LABS: Estimated Average Glucose 94 mg/dl; Hemoglobin A1C 4.9 %
[2021-02-03 16:25] LABS: Adenovirus Not Detected (Not Detect); Bordetella Pertussis Not Detected (Not Detect); Chlamydophila pneumoniae Not Detected (Not Detect); Coronavirus 229E Not Detected (Not Detect); Coronavirus HKU1 Not Detected (Not Detect); Coronavirus NL63 Not Detected (Not Detect); Coronavirus OC43 Not Detected (Not Detect); Human Metapneumovirus Not Detected (Not Detect); Human Rhinovirus/Enterovirus DETECTED (Not Detect); Influenza A Subtype 2009 H1 Not Detected (Not Detect); Influenza B Not Detected (Not Detect); Mycoplasma pneumoniae Not Detected (Not Detect); Parainfluenza Virus 1 Not Detected (Not Detect); Parainfluenza Virus 2 Not Detected (Not Detect); Parainfluenza Virus 3 Not Detected (Not Detect); Parainfluenza Virus 4 Not Detected (Not Detect); Respiratory Syncytial Virus Not Detected (Not Detect); SARS-CoV-2 Not Detected (Not Detect)
[2021-02-03] MEDS ORDERED: haloperidoL 5 MG TABLET PO PRN (17:54)
[2021-02-03] MEDS ORDERED: Haloperidol Lactate 5 MG/ML VIAL IM PRN (17:54)
[2021-02-03] MEDS ORDERED: *HR* LORazepam 1 MG TABLET PO PRN (17:54)
[2021-02-03] MEDS ORDERED: *HR* LORazepam 2 MG/ML VIAL IM PRN (17:54)
[2021-02-03] MEDS ORDERED: Nicotine 2 MG GUM BC PRN (18:44)
[2021-02-03] MEDS ORDERED: Nicotine 2 MG GUM BC SCH (20:00)
[2021-02-03] MEDS: Acetaminophen 325 MG TABLET PO PRN (20:12)
[2021-02-03] MEDS: hydrOXYzine pamoate 25 MG CAPSULE PO PRN (20:12)
[2021-02-03] MEDS: traZODone 50 MG TABLET PO PRN (20:12)
[2021-02-04] MEDS ORDERED: MOM Conc 10 ML UD.LIQ PO PRN (09:25)
[2021-02-04] MEDS ORDERED: Mag Hydrox/Al Hydrox/Simeth 30 ML UDC PO PRN (09:25)
[2021-02-04] MEDS: Nicotine 21 MG PATCH.TD24 TD SCH (09:59)
[2021-02-04] MEDS: Acetaminophen 325 MG TABLET PO PRN ×2 (09:59→18:36)
[2021-02-04] MEDS: ARIPiprazole 5 MG TABLET PO SCH (11:16)
[2021-02-04] MEDS: hydrOXYzine pamoate 25 MG CAPSULE PO PRN (20:47)
[2021-02-04] MEDS: traZODone 50 MG TABLET PO PRN (20:47)
[2021-02-05] MEDS: Nicotine 21 MG PATCH.TD24 TD SCH (08:31)
[2021-02-05] MEDS: ARIPiprazole 5 MG TABLET PO SCH (08:31)
[2021-02-05] MEDS: hydrOXYzine pamoate 25 MG CAPSULE PO PRN ×2 (09:42→20:52)
[2021-02-05] MEDS: Acetaminophen 325 MG TABLET PO PRN (20:52)
[2021-02-05] MEDS: traZODone 50 MG TABLET PO PRN (20:52)
[2021-02-06 09:13] VITALS: BP 160/104
[2021-02-06] MEDS: Nicotine 21 MG PATCH.TD24 TD SCH (09:14)
[2021-02-06] MEDS: ARIPiprazole 5 MG TABLET PO SCH (09:14)
== END 2021-02-06 14:46 | disposition home or self-care (01) | DRG 751 ==
LOC: EMEROOARM 13:49 → 1ANU 17:50
PROVIDERS: ADMIT Psychiatry & Neurology Psychiatry; ATTEND Psychiatry & Neurology Psychiatry